=== PATIENT | male | born 1995 | race Caucasian/White ===

== ENCOUNTER 2020-05-14 08:42 | Outpatient (CLI) | payer OTHER, SELFPAY ==
--- NOTE | ~2020-05-14 | MR_ITS ---
EXAMINATION: MR brain/brain stem wo con DATE: 05/14/2020 10:56 INDICATION: Seizure with status epilepticus. TECHNIQUE: Magnetic resonance imaging (MRI) of the brain and brainstem was performed without intraven ous contrast. Sequences included sagittal and axial T1-weighted FSE, axial diffusion-weighted FS EPI, axial T2*-weighted GRE, axial T2-weighted FLAIR Propeller, axial T2-weighted Propeller, coronal T2-w eighted FLAIR, and coronal T1-weighted 3D FSPGR. Apparent diffusion coefficient (ADC) maps were creat ed. COMPARISON: None. FINDINGS: There is chronic encephalomalacia in lateral aspect of right frontal and temporal lobes. Th ere is chronic encephalomalacia in anterior left cerebellum. There are scattered areas of nonspecific increased T2-weighted signal intensity in the cerebral white matter. The hippocampi are normal and s ymmetric. There is no intracranial hemorrhage, acute infarction, or abnormal intracranial mass lesion . The ventricles are normal in size. There is mucosal thickening in the paranasal sinuses. The orbits are normal. The mastoid air cells are normal. IMPRESSION: 1. Chronic encephalomalacia in lateral aspect of right frontal and temporal lobes and anterior aspect of left cerebellum. 2. Mild nonspecific cerebral white matter disease. The differential diagnosis includes premature director of [employer] coco small vessel ischemic disease (especially if the patient has cardiovascular risk factors), demyel inating disease such as multiple sclerosis, drug abuse, vasculitis, or reactive astrocytosis (gliosis ) secondary to nonspecific etiology. Reviewed, dictated and finalized at location A. NETWORK ENGINEER IMPRESSION: 1. Chronic encephalomalacia in lateral aspect of right frontal and temporal lob es and anterior aspect of left cerebellum. 2. Mild nonspecific cerebral white matter disease. The differential diagnosis i ncludes premature chronic small vessel ischemic disease (especially if the josé manuel ent has cardiovascular risk factors), demyelinating disease such as multiple sc lerosis, drug abuse, vasculitis, or reactive astrocytosis (gliosis) secondary t o nonspecific etiology.
--- NOTE | 2020-05-14 15:03 | P.NEURO_ITS ---
Neurology EEG Report General Information Date of Study: 05/14/20 TEST eeg DIAGNOSIS seizures CONDITION OF RECORDING awake and drowsy EEG NUMBER [id number] CLINICAL HISTORY patient reported he has had a traumatic brain injury couple of years ago has had no issues until couple of weeks ago. He is having episodes of confusion and losing consciousness EEG DESCRIPTION old record consists of low to medium voltage 8 to 10 hertz per 2nd alpha admi xed with low-voltage 15 to 18 hertz per second beta. During drowsiness low- voltage beta activity seen diffusely. Bilateral symmetrical sleep activity seen during sleep .hyperventilation not done ,photic stimulation produced normal drive. multiple EKG artifacts seen intermittently throughout the tracing. non paroxysmal. nonfocal. nonlateralizing. IMPRESSION no significant abnormalities noted
== END 2020-05-14 08:43 | disposition home or self-care (01) ==
PROVIDERS: Visit Provider Psychiatry & Neurology Neurology
DX: G40.211 Localization-related (focal) (partial) symptomatic epilepsy and epileptic syndromes with complex partial seizures, intractable, with status epilepticus (principal); G93.89 Other specified disorders of brain; R90.82 White matter disease, unspecified
CPT/HCPCS: 70551; 95816

== ENCOUNTER 2020-08-13 19:15 | Emergency (ER) | payer OTHER, SELFPAY ==
[2020-08-13] VITALS (17 sets, daily range): BP systolic 109–149; BP diastolic 67–99; PULSE 82–90; RESP 18–33; TEMP 36.6; O2SAT 96–100
--- NOTE | 2020-08-13 19:59 | ED.SEIZURE ---
HPI - Seizure General Chief Complaint: Seizure Stated Complaint: seizures Time Seen by Provider: 08/13/20 19:59 History of Present Illness HPI Narrative: 3 seizures today. He has a h/o seizures. He was previously on Vimpat. He stopped takig it at the end of last month, because of financial concerns. He does not believe that he sustained any injury during the seizures. He does report a headache and some memory trouble. Related Data Home Medications Medication Instructions Recorded Confirmed alprazolam 0.5 mg tablet 0.5 mg PO DAILY 07/22/20 07/22/20 lacosamide 50 mg tablet 50 mg PO Q12H 07/22/20 07/22/20 vigabatrin 500 mg tablet 500 mg PO Q12H 07/22/20 07/22/20 Allergies Allergy/AdvReac Type Severity Reaction Status Date / Time No Known Allergies Allergy Verified 08/13/20 19:26 Review of Systems Review of Systems: All systems reviewed & are unremarkable except as noted in HPI and below Constitutional: Constitutional: Denies chills and Denies fever(s) Eyes: Eyes: Reports no additional eye complaints ENT: Reports system reviewed and no additional complaints, except as documented Cardiovascular: Cardiovascular: Denies chest pain Respiratory: Respiratory: Denies dyspnea Gastrointestinal: Gastrointestinal: Denies abdominal pain Musculoskeletal: Musculoskeletal: Denies back pain Neurologic: Reports confusion and Reports headache(s) [facility] Social History Social History (Updated 07/22/20 @ 14:13 by Aubree Herrera MA) Smoking status: Former smoker Alcohol intake: current Gender identity (if verbalized by the patient): Male Exam Const: General: healthy appearing, no acute distress and alert Orientation/consciousness: patient oriented x3 Other: diaphoretic HENMT: Head: normal to inspection Neck: Neck: normal visual inspection and no lymphadenopathy Chest: Chest palpation & inspection: no tenderness Resp: Effort & Inspection: normal respiratory effort Auscultation: clear to auscultation bilaterally, no rales, no rhonchi and no wheezes Cardio: Jugular venous distension: no JVD Rate: regular rate Rhythm: regular rhythm Heart sounds: no murmurs GI: Inspection: non-distended GI Palp: Yes Soft to palpation and No Tenderness to palpation present (GI) Skin: General skin exam: normal color Neuro: General: patient oriented x3, moves all extremities and CN's II-XI intact bilaterally Speech: normal speech Gait exam (Neuro): Normal gait present Extrem: General: normal to inspection and no edema Psych: Appearance: well kempt Affect: normal affect Course Vital Signs Vital signs: Vital Signs Temperature 36.6 C 08/13/20 19:21 Pulse Rate 90 08/13/20 19:21 Respiratory Rate 18 08/13/20 19:21 Blood Pressure 148/98 H 08/13/20 19:21 Pulse Oximetry 100 08/13/20 19:21 Temperature 36.6 C 08/13/20 19:21 Pulse Rate 83 08/13/20 22:16 Respiratory Rate 33 H 08/13/20 22:16 Blood Pressure 109/67 08/13/20 22:16 Pulse Oximetry 99 08/13/20 21:48 MDM - Seizure MDM Narrative Medical decision making narrative: He has known seizure disorder and has been noncomliant with medications. I will write for prescritions refills, but he will need to follow up with his neurologist. Differential Diagnosis Differential diagnosis: Likely generalized seizure and epileptic seizure Medical Records Attestation: I reviewed the patient's medical records. Lab Data Attestation: I reviewed the patient's lab results. Result diagrams: 08/13/20 21:20 08/13/20 21:20 Labs: Lab Results 08/13/20 08/13/20 Range/Units 21:20 21:20 WBC 17.7 H (4.5-10.0) K/mm3 RBC 5.47 (4.6-6.20) M/mm3 Hgb 16.1 (14.0-18.0) g/dL Hct 46.0 (42.0-52.0) % MCV 84.1 (80-100) fl MCH 29.4 (26-34) pg MCHC 35.0 (32-36) g/dl RDW 12.9 (11.5-14.5) % Plt Count 289 (150-375) k/mm3 MPV 10.1 (7.4-10.4) fl Immature Gran % (Auto) 0.5 (0-0.5) % Neut % (Au
[2020-08-13] MEDS: SODIUM CHLORIDE 0.9% IV 1,000 ML 999 ML IV CONT (21:09)
[2020-08-13] MEDS: METOCLOPRAMIDE HCL INJ 10 MG/2 ML VIAL IV PUSH (21:09)
[2020-08-13] MEDS: LACOSAMIDE (*CRX) 50 MG TABLET PO (21:18)
[2020-08-13 21:25] LABS: Basophils Percent Auto 0.2 % (0.2-1.2); Eosinophils Percent Auto 0.1 % (0-4.4); Hemoglobin 16.1 g/dL (14.0-18.0); Immature Granulocyte Absolute 0.09 K/mm3 (0.00-0.031); Immature Granulocyte Percent A 0.5 % (0-0.5); Lymphocytes Absolute Auto 1.24 K/mm3 (0.9-3.2); Mean Corpuscular Hemoglobin 29.4 pg (26-34); Mean Corpuscular Volume 84.1 fl (80-100); Mean Platelet Volume 10.1 fl (7.4-10.4); Monocytes Absolute Auto 1.3 K/mm3 (0.1-0.6); Monocytes Percent Auto 7.3 % (2.6-8.5); Neutrophils Percent Auto 84.9 % (45.5-73.1); Platelet Count Result 289 k/mm3 (150-375); Red Blood Count 5.47 M/mm3 (4.6-6.20); Red Cell Distribution Width 12.9 % (11.5-14.5); White Blood Count 17.7 K/mm3 (4.5-10.0)
[2020-08-13 21:35] LABS: Alanine Aminotransferase 37 U/L (4-50); Albumin Level 4.5 g/dL (3.5-5.1); Alkaline Phosphatase 93 U/L (38-126); Anion Gap 10 mmol/L (8-16); Aspartate Amino Transferase 41 U/L (17-59); Bilirubin,Total 1.1 mg/dL (0.2-1.3); Blood Urea Nitrogen 11 mg/dL (9-20); Calcium 9.4 mg/dL (8.4-10.2); Carbon Dioxide 25 mmol/L (22-30); Chloride 104 mmol/L (98-107); Estimated CRCL calculation 119 ml/min; Estimated Glomerular Filt Rate > 60; Glucose 100 mg/dL (75-110); Potassium 3.8 mmol/L (3.4-5.0); Sodium 139 mmol/L (137-145)
== END 2020-08-13 22:56 | disposition home or self-care (01) ==
PROVIDERS: Emergency Provider Emergency Medicine
DX: G40.909 Epilepsy, unspecified, not intractable, without status epilepticus (principal); Z91.120 Patient's intentional underdosing of medication regimen due to financial hardship
CPT/HCPCS: 36415; 80053; 85025; 96361; 96374; 99284; A9270; J2765; J7030

== ENCOUNTER 2022-05-14 11:03 | Emergency (ER) | payer OTHER, SELFPAY ==
[2022-05-14] VITALS (7 sets, daily range): BP systolic 120–151; BP diastolic 78–94; PULSE 62–71; RESP 16–26; TEMP 36.7; O2SAT 96–100
--- NOTE | ~2022-05-14 | CT_ITS ---
EXAMINATION: CT brain wo con DATE: 05/14/2022 13:28 INDICATION: Head injury. Seizure. TECHNIQUE: Computed tomography (CT) of the head was performed without intravenous contrast. Sagittal and coronal reconstructions were performed. The mA was adjusted according to patient size. Iterative reconstruction technique was employed. The dose-length product was 605.33 mGy-cm. COMPARISON: brain MR dated 05/14/2020 FINDINGS: No fracture. No acute intracranial hemorrhage, acute infarction or abnormal extra axial fluid collect ion. Ventricles are normal and symmetric. No mass/mass effect. End seen is moderate mucosal thickenin g the bilateral ethmoid, left sphenoid and right maxillary sinuses. The orbits and mastoid air cells are normal. IMPRESSION: 1. Normal brain. No fracture or acute intracranial process. 2. Chronic sinus disease. Reviewed, dictated and finalized at location A.
--- NOTE | ~2022-05-14 | XR_ITS ---
EXAMINATION: XR chest 1V portable DATE: 05/14/2022 13:07 INDICATION: Chest wall pain. Back pain. Seizure. TECHNIQUE: frontal and lateral views of the chest were obtained. COMPARISON: None FINDINGS: The lungs are clear with no focal airspace opacities, pulmonary edema, pleural effusion or pneumothor ax. The cardiomediastinal silhouette is normal. Visualized bones and soft tissues are unremarkable. IMPRESSION: 1. Normal chest radiograph. Reviewed, dictated and finalized at location A. IMPRESSION: 1. Normal chest radiograph.
[2022-05-14] MEDS: clonazePAM (*CRX) 0.5 MG TABLET PO (13:10)
[2022-05-14] MEDS: SODIUM CHLORIDE 0.9% IV 1,000 ML 999 ML IV CONT (13:10)
--- NOTE | 2022-05-14 13:32 | ED.GENADULT ---
HPI - General Adult General Chief complaint: Seizure Stated complaint: cyndizure this morning- + hx Time Seen by Provider: 05/14/22 11:45 History of Present Illness HPI narrative: 26-year-old male presented the emergency department for evaluation after having a breakthrough seizure. Patient states he does take Vimpat and Klonopin for seizures. Patient states that he has had issues with securing follow-up with his neurologist due to insurance. Patient reports he has been taking his Vimpat but had run out of his Klonopin a few days ago. Patient states that his psychiatrist has been feeling his medications. Patient states that he does have partial focal seizures with aura every day but last night he suspects that he had a tonic-clonic seizure because he was having aura and then woke up in his room was disheveled he was having body aches and did fine emesis on the floor. Patient does complain of a left-sided headache. Related Data Home Medications Medication Instructions Recorded Confirmed alprazolam 0.5 mg tablet 0.5 mg PO DAILY 07/22/20 04/12/21 clonazepam 0.5 mg tablet mg 05/14/22 orphenadrine citrate 100 mg mg PO 05/14/22 tablet,extended release Allergies Allergy/AdvReac Type Severity Reaction Status Date / Time No Known Allergies Allergy Verified 05/14/22 11:22 Review of Systems Review of Systems: All systems reviewed & are unremarkable except as noted in HPI and below PMFSH Social History Social History Smoking status: Former smoker Alcohol intake: current Gender identity (if verbalized by the patient): Male Exam Narrative: APPEARANCE: Well appearing, no pain, no distress, well-nourished. HEAD: normocephalic, atraumatic. EYES: PERRLA/EOMI, conjunctivae clear. NOSE: Normal no drainage NECK: Supple. No adenopathy, no masses. RESPIRATORY: Airway patent, respirations nonlabored. Clear to auscultation bilaterally, no rales, rhonchi, wheezing. CARDIOVASCULAR: Regular rate and rhythm without murmurs rubs or gallops. ABDOMINAL: Soft, nontender, nondistended, normal bowel sounds MUSCULOSKELETAL: Moves all extremities. Strength/ROM intact, No edema, No calf tenderness. NEURO: Alert. Cranial nerves II through XII intact. Grossly intact SKIN: Warm, dry. Normal Color Course Course Emergency Course: 26-year-old male with history of seizures presenting with a breakthrough seizure. Patient states he has been taking his Vimpat as directed. Patient reports that he has not missed any doses. Patient reports having breakthrough seizures every month or 2 and states his last seizure was 1 to 2 months ago. Case was discussed with neurology and Dr. Metcalf was comfortable with the plan to increase the patient's Vimpat. Patient's Klonopin was also refilled. Patient's head CT was negative for acute intracranial abnormality. Patient was updated on the results of his work-up and on the plan to increase his Vimpat. Patient was also encouraged to seek follow-up with neurology. Patient states he possibly has insurance and so he was directed to contact his denial management representative to see if his insurance has been activated. Patient reports he is on Medicaid and so he was instructed also contact Medicaid to find a neurologist that is covered by his insurance. Vital Signs Vital signs: Vital Signs Temperature 98.0 F 05/14/22 11:22 Pulse Rate 67 05/14/22 11:22 Respiratory Rate 16 05/14/22 11:22 Blood Pressure 125/94 H 05/14/22 11:22 Pulse Oximetry 97 05/14/22 11:22 Oxygen Delivery Room Air 05/14/22 11:22 Temperature 98.0 F 05/14/22 11:22 Pulse Rate 71 05/14/22 14:01 Respiratory Rate 16 05/14/22 14:01 Blood Pressure 134/93 H 05/14/22 14:01 Pulse Oximetry 99 05/14/22 14:01 Oxygen Delivery Room Air 05/14/22 11:40 Medical Decision Making Vital Signs Vital Signs: Vital Signs Temperature 98.0 F 05/14/22 11:22 Pulse Rate 67 05/14/22
== END 2022-05-14 14:02 | disposition home or self-care (01) ==
PROVIDERS: Emergency Provider Emergency Medicine
DX: G40.909 Epilepsy, unspecified, not intractable, without status epilepticus (principal); Z87.891 Personal history of nicotine dependence
CPT/HCPCS: 70450; 71045; 96360; 99284; A9270; J7030

== ENCOUNTER 2022-05-26 09:44 | Emergency (ER) | payer OTHER, SELFPAY ==
[2022-05-26 10:16] VITALS: BP 123/86; PULSE 97; RESP 16; TEMP 36.8; O2SAT 97
--- NOTE | 2022-05-26 12:08 | ED.LOWEXIN ---
HPI - Extremity Injury (Lower) General Chief Complaint: Extremity Injury, Lower Stated Complaint: right ankle injury that occurred last night Time Seen by Provider: 05/26/22 11:01 Source: RN notes reviewed History of Present Illness HPI Narrative: Patient presents emergency department from home for right ankle pain. Patient states symptoms occurred last night when he was stepping down off of the stool and twisted his right ankle he states has had pain and swelling the right lateral ankle since that time worse with walking he denies falling to the ground or any other injuries. States he has been using ice on the ankle but does not take anything for the pain he denies any numbness or tingling in the extremities denies any pain in the knee or the foot Related Data Home Medications Medication Instructions Recorded Confirmed alprazolam 0.5 mg tablet 0.5 mg PO DAILY 07/22/20 04/12/21 clonazepam 0.5 mg tablet mg 05/14/22 orphenadrine citrate 100 mg mg PO 05/14/22 tablet,extended release Allergies Allergy/AdvReac Type Severity Reaction Status Date / Time No Known Allergies Allergy Verified 05/26/22 09:44 Review of Systems Review of Systems: Gen.: Denies fevers or chills Musculoskeletal: See HPI Neuro: Denies numbness, tingling, weakness Skin: Denies rash Endo: Denies DM PMFSH Past Medical History Medical History (Updated 05/26/22 @ 12:10 by Dakota Jackson DO) Seizure disorder Social History Social History Smoking status: Former smoker Alcohol intake: current Gender identity (if verbalized by the patient): Male Exam Narrative: APPEARANCE: No acute distress, nontoxic, resting in bed Eyes: EOMI HEENT: Normocephalic, atraumatic, RESPIRATORY: No respiratory distress MUSCULOSKELETAl: Tender palpation of the right lateral ankle with swelling present no tenderness over the anterior medial ankle no tenderness of the base of the fifth metatarsal or the proximal fibula dorsalis pedis pulse 2+ neurovascular intact NEURO: Awake and alert. Following commands, speech normal, no focal deficits SKIN:: Warm, dry. Normal Color no rash or lesions Course Course Emergency Course: Discussed with patient results of workup and diagnosis. Discussed need for follow-up with primary care, proper use of medication, and reasons to return to the emergency department. Patient understands and agrees to current treatment plan Vital Signs Vital signs: Vital Signs Temperature 98.3 F 05/26/22 10:16 Pulse Rate 97 05/26/22 10:16 Respiratory Rate 16 05/26/22 10:16 Blood Pressure 123/86 05/26/22 10:16 Pulse Oximetry 97 05/26/22 10:16 Oxygen Delivery Room Air 05/26/22 10:16 Temperature 98.3 F 05/26/22 10:16 Pulse Rate 97 05/26/22 10:16 Respiratory Rate 16 05/26/22 10:16 Blood Pressure 123/86 05/26/22 10:16 Pulse Oximetry 97 05/26/22 10:16 Oxygen Delivery Room Air 05/26/22 10:16 MDM - Extremity Injury (Lower) Imaging Data Radiologist's impression: ITS Impressions Ankle X-Ray 05/26/22 10:41 Impression: Unremarkable right ankle. Discharge Plan Discharge Clinical Impression: Right ankle sprain Patient Disposition: Home, Self-Care Condition: Stable Instructions: Antibiotic Form, Ankle Sprain (ED) Additional Instructions: Return for any increasing pain numbness or tingling in extremities or any other symptoms of concern Prescriptions: New ibuprofen 600 mg tablet 600 mg PO TID PRN (Reason: pain) Qty: 14 0RF No Action alprazolam 0.5 mg tablet 0.5 mg PO DAILY clonazepam 0.5 mg tablet orphenadrine citrate 100 mg tablet extended release PO lacosamide [Vimpat] 200 mg tablet 200 mg PO Q12H 30 Days Qty: 60 0RF clonazepam [Klonopin] 0.5 mg tablet 0.5 mg PO BID 10 Days Qty: 20 0RF Rx Instructions: administer 30 minutes before bedtime lis
[2022-05-26] MEDS: IBUPROFEN 600 MG TABLET PO (12:11)
== END 2022-05-26 12:40 | disposition home or self-care (01) ==
LOC: ANHED 12:16
PROVIDERS: Emergency Provider Emergency Medicine
DX: S93.401A Sprain of unspecified ligament of right ankle, initial encounter (principal); X50.0XXA Overexertion from strenuous movement or load, initial encounter; G40.909 Epilepsy, unspecified, not intractable, without status epilepticus; Z87.891 Personal history of nicotine dependence
CPT/HCPCS: 73610; 99283; A9270